=== PATIENT | female | born 1990 | race American Indian/Alaskan Native ===

== ENCOUNTER 2019-03-08 09:43 | Outpatient (CLI) | payer BC, MEDICAID ==
[2019-03-08 10:52] VITALS: BP 108/66
== END 2019-03-08 11:23 | disposition home or self-care (01) ==
LOC: TRG 09:43
PROVIDERS: ATTEND Obstetrics & Gynecology
DX: O47.02 False labor before 37 completed weeks of gestation, second trimester (principal); Z3A.21 21 weeks gestation of pregnancy
CPT/HCPCS: 59025

== ENCOUNTER 2019-04-23 11:37 | Outpatient (CLI) | payer BC, MEDICAID | END 2019-04-23 14:30 | disposition home or self-care (01) | LOC: LAB 11:37 → TRG 11:37 | PROVIDERS: ATTEND Obstetrics & Gynecology | DX: O26.893 Other specified pregnancy related conditions, third trimester (principal); O10.913 Unspecified pre-existing hypertension complicating pregnancy, third trimester; Z3A.28 28 weeks gestation of pregnancy; Z67.11 Type A blood, Rh negative | CPT/HCPCS: 86850; 86900; 86901; 96372; J2790 ==

== ENCOUNTER 2019-07-02 11:26 | Inpatient (IN) | payer BC, MEDICAID, OTHER ==
[2019-07-02] MEDS ORDERED: LACTATED RINGERS 2,000 ML ONE (11:43)
[2019-07-02] MEDS ORDERED: METOCLOPRAMIDE 10 MG/2 ML INJ IV ONE ×2 (11:46→17:55)
[2019-07-02] MEDS ORDERED: FAMOTIDINE 20 MG/2 ML INJ IV ONE ×2 (11:46→17:56)
[2019-07-02] MEDS ORDERED: BICITRA ORAL LIQD 30ML PO ONE (11:46)
[2019-07-02] MEDS ORDERED: ceFAZolin/Water 2 GM/20 ML 2 GM/20 ML SYRINGE IV NR ×2 (12:00→18:00)
[2019-07-02] MEDS ORDERED: OXYTOCIN 20 UNIT/1000ML DRIP 20 UNITS/1,000 ML BAG IV SCH ×3 (12:00→20:00)
[2019-07-02 12:33] LABS: Basophils % (Auto) 0.4 % (0.0-1.8); Eosinophils % (Auto) 0.4 % (0.0-4.3); Hemoglobin 11.9 gm/dl (10.1-14.3); Lymphocytes # (Auto) 1.6 K/mm3 (1.2-5.4); Lymphocytes % (Auto) 19.8 % (13.4-35.0); Mean Corpuscular HGB Conc 33 % (30-34); Mean Corpuscular Volume 92 fl (79-97); Monocytes # (Auto) 0.5 K/mm3 (0.0-0.8); Monocytes % (Auto) 6.4 % (0.0-7.3); Platelet Count 295 K/mm3 (140-440); Red Blood Count 3.93 M/mm3 (3.65-5.03); Red Cell Distribution Width 14.2 % (13.2-15.2)
[2019-07-02] MEDS: LACTATED RINGERS 1,000 ML IV SCH ×3 (13:40→15:29)
--- NOTE | 2019-07-02 17:52 | History and Physical Report ---
History of Present Illness Date of examination: 07/02/19 Date of admission: 07/02/19 11:26 Chief complaint: Sent in by MFM at [facility] for oligohydramnios at 38+1wks gestation. Past History Past Medical History: hypertension Past Surgical History: cholecystectomy, section - Obstetrical History Expected Date of Delivery: 07/15/19 Actual Gestation: 38 Week(s) 1 Day(s) : 3 Para: 1 Medications and Allergies Allergies Allergy/AdvReac Type Severity Reaction Status Date / Time No Known Allergies Allergy Verified 04/23/19 14:11 Home Medications Medication Instructions Recorded Confirmed Last Taken Type Methyldopa [Aldomet] 500 mg PO BID MDD 1000mg 07/02/19 07/02/19 07/02/19 07:00 History Active Meds: Active Medications Cefazolin Sodium (Ancef/Sterile Water 2 Gm/20 Ml) 2 gm in 20 mls @ 80 mls/hr IV PREOP NR; Protocol Stop: 07/02/19 23:59 Oxytocin/Sodium Chloride (Pitocin/Ns 20 Unit/1000ml Drip) 20 units in 1,000 mls @ 0 mls/hr IV TITR MESSI Lactated Ringer's (Lactated Ringers) 1,000 mls @ 2,250 mls/hr IV PREOP MESSI Stop: 07/03/19 12:27 Last Admin: 07/02/19 15:29 Dose: 2,250 mls/hr Documented by: Review of Systems All systems: negative Eyes: pain, no blurred vision Cardiovascular: no chest pain Respiratory: no cough Gastrointestinal: no abdominal pain, no nausea, no vomiting, no hematemesis Neurological: headaches (mild.) - Vital Signs Vital signs: Vital Signs Temp Pulse Resp BP 97.5 F L 96 H 20 120/76 07/02/19 11:49 07/02/19 11:49 07/02/19 11:49 07/02/19 11:49 Temp Pulse Resp BP Pulse Ox 97.5 F L 96 H 20 120/76 07/02/19 11:49 07/02/19 11:50 07/02/19 11:49 07/02/19 11:50 - Physical Exam Breasts: Positive: deferred Lungs: Positive: Normal air movement Abdomen: Positive: normal appearance, distention. Negative: tenderness - Obstetrical FHR: auscultation normal Results Result Diagrams: 07/02/19 12:00 Abnormal lab results 07/02/19 Range/Units 12:00 Seg Neutrophils % 73.0 H (40.0-70.0) % All other labs normal. Assessment and Plan - Patient Problems (1) 38 to 41 weeks gestation of Current Visit: Yes Status: Acute (2) Oligohydramnios antepartum Current Visit: Yes Status: Acute (3) Chronic hypertension Current Visit: Yes Status: Acute Plan to address problem: Patient is awaiting a repeat as soon as all systems ready. Will be continued on Methyl Dopa post .
[2019-07-02] MEDS ORDERED: FAMOTIDINE 20 MG/2 ML INJ IV SCH (17:55)
[2019-07-02] MEDS ORDERED: BICITRA ORAL LIQD 30ML PO SCH (17:55)
[2019-07-02] MEDS ORDERED: BICITRA ORAL LIQD 30ML ONE (17:55)
[2019-07-02] MEDS ORDERED: METOCLOPRAMIDE 10 MG/2 ML INJ ONE (17:56)
[2019-07-02] MEDS ORDERED: LACTATED RINGERS 1,000 ML IV SCH (18:00)
[2019-07-02] MEDS ORDERED: SODIUM CHLORIDE 0.9% IRR 1,500 ML BOTTLE IR ONE (18:40)
[2019-07-02] MEDS ORDERED: WATER FOR IRRIG STERILE 1,500 ML BOTTLE IR ONE (18:40)
[2019-07-02] MEDS ORDERED: KETOROLAC 30 MG/1 ML INJ ONE (19:39)
[2019-07-02] MEDS ORDERED: ONDANSETRON 4 MG/2 ML INJ ONE (19:39)
[2019-07-02] MEDS ORDERED: LANOLIN/ZINC/DIMETHICONE (LANSINOH) 7 GM TP PRN (19:43)
[2019-07-02] MEDS ORDERED: KETOROLAC 30 MG/1 ML INJ IV PRN (19:43)
[2019-07-02] MEDS ORDERED: ONDANSETRON 4 MG/2 ML INJ IV PRN ×2 (19:43→20:12)
[2019-07-02] MEDS ORDERED: MORPHINE 4 MG/1 ML INJ IV PRN (19:43)
[2019-07-02] MEDS ORDERED: NALOXONE 0.4 MG/1 ML INJ IV PRN (19:43)
[2019-07-02] MEDS ORDERED: WITCH HAZEL/ GLYCERIN PAD TP PRN (19:43)
[2019-07-02] MEDS ORDERED: ACETAMINOPHEN 325 MG TAB PO PRN (19:43)
[2019-07-02] MEDS ORDERED: HYDROmorphone 1 MG/1 ML INJ ONE (19:52)
--- NOTE | 2019-07-02 19:54 | Operative Report ---
Operative Report Operative Report: Date of surgery: 07/02/2019 Preoperative diagnoses: Term , chronic hypertension, oligohydramnios Postoperative diagnoses: The same. Peritoneal adhesions Operation: Lower segment transverse delivery Surgeon:Dayanna Zamudio MD Maintenance Apprentice: TERRY Simms Anesthesia: Spinal block Estimated blood loss: 650 mL Complications: None Findings: There was a live baby boy in cephalic presentation weighing 8 lbs. 1 oz., Apgars 8/9. The ovaries and fallopian tubes as well as the uterus were all grossly normal. There was a dense band of adhesions plastered over the anterior aspect of the uterus and attached to the anterior parietal peritoneum. The urine was clear at the end of surgery. Procedure in detail: The patient was taken to the operating room and given a spinal block. Patient was placed in the straight supine position and a Bazan catheter was inserted. The patient was prepped in the abdomen. The drapes were placed. A timeout was done. With the go ahead from the tongue and groove machine setter, a Pfannenstiel incision was made. This incision was carried across the subcutaneous layer to the fascia which was also divided transversely. The recti abdominis muscle flaps were stripped from the fascia using a combination of blunt and sharp dissections. The muscles were in the midline to gain access to the anterior parietal peritoneum which was divided after excluding any underlying viscera. Dense band of adhesions encountered over the lower uterine segments was careful ly evaluated and divided. The access to the peritoneal cavity was then widened by manual stretching. The bladder blade was applied. The utero vesicle peritoneal flap was divided transversely allowing the bladder to be displaced caudally. The uterine incision was placed in the lower segment transversely. The uterine incision was carried to the decidual layer. The uterine incision was extended on both sides using the bandage scissors. The amniotic sac was ruptured with clear fluid. The head was lifted out of the false maternal pelvis and delivered through the incision using fundal pressure and traction with the vacuum cup. The airways were bulb suctioned beginning with the mouth. Continuing fundal pressure combined with traction on the mandibular processes of the jaw de livered the rest of the baby. The umbilical cord was double clamped and divided. The baby was carefully transferred to the pediatric team. The placenta was manually removed from the uterine cavity. The uterine cavity was explored and was empty of any placental remnants. The uterine incision was repaired in 2 layers with #1 Vicryl. The surgical line on the uterus was hemostatic. Blood and clots were cleared from the peritoneal cavity. The anterior parietal peritoneum was repaired with #1 Vicryl. The fascia was repaired with #1 Vicryl. The subcutaneous layer was made hemostatic using the Bovie before the skin was closed subcuticularly with 4-0 Vicryl. There were no complications. The estimated blood loss was 650 mL. All sponges and instrument counts were correct. Patient was safely transferred to the recovery room.
--- NOTE | 2019-07-02 20:11 | Anesthesia Consultation ---
Anesthesia Consult and Med Hx Date of service: 07/02/19 - Airway Anesthetic Teeth Evaluation: Good, Partials ROM Head & Neck: Adequate Mental/Hyoid Distance: Adequate Mallampati Class: Class II Intubation Access Assessment: Probably Good - Pulmonary Exam CTA: Yes - Pre-Operative Health Status ASA Pre-Surgery Classification: ASA2 Proposed Anesthetic Plan: Spinal - Pulmonary Hx Smoking: No Hx Asthma: No Hx Respiratory Symptoms: No SOB: No COPD: No Home Oxygen Therapy: No Hx Pneumonia: No Hx Sleep Apnea: No - Cardiovascular System Hx Hypertension: Yes Hx Coronary Artery Disease: No Hx Heart Attack/AMI: No Hx Angina: No Hx Percutaneous Transluminal Coronary Angioplasty (PTCA): No Hx Cardia Arrhythmia: No Hx Pacemaker: No Hx Internal Defibrillator: No Hx Valvular Heart Disease: No - Central Nervous System Hx Neuromuscular Disorder: No Hx Seizures: No CVA: No Hx Back Pain: No Hx Psychiatric Problems: No - Gastrointestinal Hx Ulcer: No Hx Gastroesophageal Reflux Disease: No - Endocrine Hx Renal Disease: No Hx End Stage Renal Disease: No Hx Cirrhosis: No Hx Liver Disease: No Hx Insulin Dependent Diabetes: No Hx Non-Insulin Dependent Diabetes: No Hx Thyroid Disease: No Hx Hypothyroidism: No Hx Hyperthyroidism: No - Hematic Hx Anemia: No Hx Sickle Cell Disease: No - Other Systems Hx Alcohol Use: No Hx Substance Use: No Hx Cancer: No Hx Obesity: Yes (BMI 40)
[2019-07-02] MEDS ORDERED: diphenhydrAMINE 50 MG/ML VIAL IV PRN (20:12)
[2019-07-02] MEDS ORDERED: HYDROmorphone 1 MG/1 ML INJ IV PRN (20:12)
--- NOTE | 2019-07-02 20:12 | Post Anesthesia Evaluation ---
- Post Anesthesia Evaluation Patient Participated: Yes Airway Patent: Yes Stable Respiratory Function: Yes Nausea/Vomiting: No Temp > 96.8F: Yes Pain Manageable: Yes Adequeate Hydration: Yes Anesthesia Complications: No Block Receding Appropriately: Yes Patient on Ventilator: No
--- NOTE | 2019-07-02 20:12 | Anesthesia Day of Surgery ---
Anesthesia Day of Surgery - Day of Surgery Patient Examined: Yes Patient H&P Reviewed: Yes Patient is NPO: Yes Beta Blockers: No Cardiac Clearance: No Pulmonary Clearance: No Toni's Test: N/A
[2019-07-02] MEDS: HYDROmorphone 1 MG/1 ML INJ IV PRN ×2 (20:46→21:10)
[2019-07-03] MEDS ORDERED: LACTATED RINGERS 1,000 ML ONE (02:25)
[2019-07-03] MEDS: ceFAZolin/NS 1 GM/50 ML 1 GM/50 ML BAG IV SCH ×2 (07:40→16:55)
[2019-07-03] MEDS: HYDROcodone/ACETAMINOPHEN 5-325 MG TAB PO PRN ×2 (08:46→14:53)
[2019-07-03 09:35] LABS: Hematocrit 34.7 % (30.3-42.9); Hemoglobin 11.7 gm/dl (10.1-14.3)
[2019-07-03] MEDS: FERROUS SULFATE 325 MG TAB PO SCH (11:09)
[2019-07-03] MEDS: PRENATAL VIT27-FE FUMARATE-FOLIC ACID VIT TAB PO SCH (11:10)
--- NOTE | 2019-07-03 12:54 | Progress Note ---
Assessment and Plan A: SP c/section P: doing well continue routine postop care. Dayanna Tierney MD Subjective - Subjective Date of service: 07/03/19 Interval history: doing well no complaints Objective - Vital Signs Vital Signs: Vital Signs - 12hr 07/03/19 07/03/19 04:03 08:34 Temperature 98.5 F 98.3 F Pulse Rate 80 79 Respiratory 18 18 Rate Blood Pressure 112/73 124/84 O2 Sat by Pulse 97 99 Oximetry - Exam Breasts: deferred Cardiovascular: Regular rate Lungs: Clear to auscultation Abdomen: Present: normal appearance, soft, normal bowel sounds Uterus: Present: firm, fundal height at umbilicus Deep Tendon Reflex Grade: Normal +2 - Labs Labs: Abnormal Labs 07/02/19 12:00 Seg Neutrophils % 73.0 H Laboratory Results - last 24 hr 07/02/19 07/03/19 07/03/19 12:00 08:34 08:49 Hgb 11.7 Hct 34.7 Blood Type A NEGATIVE A NEGATIVE Antibody Screen Negative Negative Screen Negative
[2019-07-03] MEDS: IBUPROFEN 800 MG TAB PO PRN (20:25)
[2019-07-04] MEDS: HYDROcodone/ACETAMINOPHEN 5-325 MG TAB PO PRN (04:58)
[2019-07-04] MEDS: PRENATAL VIT27-FE FUMARATE-FOLIC ACID VIT TAB PO SCH (10:26)
[2019-07-04] MEDS: FERROUS SULFATE 325 MG TAB PO SCH (10:26)
[2019-07-04] MEDS: IBUPROFEN 800 MG TAB PO PRN ×2 (10:29→19:20)
--- NOTE | 2019-07-04 11:05 | Progress Note ---
Assessment and Plan A: /postop day 2 S/P repeat low transverse section. Chronic hypertension. P: Continue current management. Encouraged ambulation. Subjective - Subjective Date of service: 07/04/19 Principal diagnosis: /postop day 2 S/P repeat low transverse section Interval history: /postop day 2 S/P repeat low transverse section. Chronic hypertension. Doing well. Patient reports small amount of lochia. She is voiding without difficulty, ambulating well, tolerating a regular diet, and passing gas. Patient denies headache, cough, shortness of breath, chest pain, leg pain, ab dominal pain, nausea or vomiting, or heavy vaginal bleeding. Patient reports: appetite normal, voiding normally, pain well controlled, flatus, ambulating normally, no dizzy ambulation, no nauseated : doing well, in NICU Objective - Vital Signs Latest vital signs: Vital Signs Temp Pulse Resp BP Pulse Ox 07/04/19 07:30 97.5 F L 90 18 130/86 95 07/03/19 23:22 98.2 F 85 18 119/79 96 07/03/19 16:29 122.0 F H 94 H 18 126/76 98 Intake and Output 07/03/19 07/04/19 07/04/19 23:59 07:59 15:59 Intake Total 1200 500 Output Total 900 Balance 300 500 Intake: Oral 360 Intake, Free Water 840 500 Output: Urine 900 Void 900 Other: Total, Intake Amount 360 Total, Output Amount 900 # Voids Void 2 1 - Exam Cardiovascular: Present: Regular rate, Normal S1, Normal S2, No murmurs Lungs: Present: Clear to auscultation Abdomen: Present: normal appearance, soft, normal bowel sounds. Absent: distention, tenderness, guarding, rigidity Uterus: Present: normal, firm, fundal height below umbilicus. Absent: bogginess, tenderness Extremities: Present: normal, edema (mild pedal edema bilaterally). Absent: tenderness Incision: Present: normal, dry, intact
[2019-07-05] MEDS: IBUPROFEN 800 MG TAB PO PRN (05:20)
[2019-07-05] MEDS: HYDROcodone/ACETAMINOPHEN 5-325 MG TAB PO PRN ×2 (05:20→20:41)
--- NOTE | 2019-07-05 10:01 | Discharge Summary ---
Providers - Providers Date of Admission: 07/02/19 11:26 Date of discharge: 07/05/19 (1200) Attending physician: ANJELICA DOS SANTOS MD Primary care physician: ANJELICA DOS SANTOS MD Hospitalization Reason for admission: induction of labor, IUP at term Delivery: Procedure: repeat low transverse Episiotomy: none Laceration: none Incision: dry, intact (steri-strips intact, no signs of infection noted) complications: none Discharge diagnosis: other (S/P repeat C/S) baby: male (In NICU) Hospital course: See admission H & P; OB operative note and PP progress notes Condition at discharge: Stable Disposition: DC-01 TO HOME OR SELFCARE - Discharge Diagnoses (1) S/P repeat low transverse Status: Acute (2) Chronic hypertension Status: Acute Plan - Discharge Medications Prescriptions: HYDROcodone/APAP 5-325 [[place] 5/325] 1 - 2 each PO Q4HR PRN #30 tablet PRN Reason: Pain - Provider Discharge Summary Activity: routine, no sex for 6 weeks, no heavy lifting 4 weeks, no strenuous exercise Diet: routine Instructions: routine Additional instructions: [] Smoking cessation referral if applicable(refer to patient education folder for contact #) [] Refer to [facility]'s [facility] Booklet Call your doctor immediately for: * Fever > 100.5 * Heavy vaginal bleeding ( >1 pad per hour) * Severe persistent headache * Shortness of breath * Reddened, hot, painful area to leg or breast * Drainage or odor from incision. * Keep incision clean and dry at all times and follow doctor's instructions regarding bathing/showering - Follow up plan Follow up: ANJELICA DOS SANTOS MD [Primary Care Provider] - 7 Days
[2019-07-05] MEDS: FERROUS SULFATE 325 MG TAB PO SCH (10:41)
[2019-07-05] MEDS: PRENATAL VIT27-FE FUMARATE-FOLIC ACID VIT TAB PO SCH (10:41)
[2019-07-06] MEDS: IBUPROFEN 800 MG TAB PO PRN (00:08)
[2019-07-06] MEDS: HYDROcodone/ACETAMINOPHEN 5-325 MG TAB PO PRN (05:34)
[2019-07-06 08:16] LABS: Basophils % (Auto) 0.4 % (0.0-1.8); Eosinophils # (Auto) 0.2 K/mm3 (0.0-0.4); Eosinophils % (Auto) 2.9 % (0.0-4.3); Hematocrit 30.3 % (30.3-42.9); Hemoglobin 10.4 gm/dl (10.1-14.3); Lymphocytes # (Auto) 1.3 K/mm3 (1.2-5.4); Lymphocytes % (Auto) 23.5 % (13.4-35.0); Mean Corpuscular HGB Conc 34 % (30-34); Mean Corpuscular Volume 92 fl (79-97); Monocytes # (Auto) 0.7 K/mm3 (0.0-0.8); Monocytes % (Auto) 12.4 % (0.0-7.3); Platelet Count 252 K/mm3 (140-440); Red Cell Distribution Width 14.1 % (13.2-15.2)
[2019-07-06] MEDS: FERROUS SULFATE 325 MG TAB PO SCH (11:11)
[2019-07-06] MEDS: PRENATAL VIT27-FE FUMARATE-FOLIC ACID VIT TAB PO SCH (11:11)
[2019-07-06 11:14] VITALS: BP 133/90
== END 2019-07-06 12:07 | disposition home or self-care (01) | DRG 765 ==
LOC: UNDOADMIN 11:26 → APU 11:26 → OB 22:35
PROVIDERS: ADMIT Obstetrics & Gynecology; ATTEND Obstetrics & Gynecology
PROC: 10D00Z1 Extraction of Products of Conception, Low, Open Approach (ICD-10-PCS; principal; 2019-07-02)
PROC: 3E0234Z Introduction of Serum, Toxoid and Vaccine into Muscle, Percutaneous Approach (ICD-10-PCS; 2019-07-05)
DX: O34.211 Maternal care for low transverse scar from previous cesarean delivery (principal); O41.03X0 Oligohydramnios, third trimester, not applicable or unspecified; O10.02 Pre-existing essential hypertension complicating childbirth; O26.893 Other specified pregnancy related conditions, third trimester; O99.214 Obesity complicating childbirth; E66.01 Morbid (severe) obesity due to excess calories; Z3A.38 38 weeks gestation of pregnancy; Z37.0 Single live birth; Z71.3 Dietary counseling and surveillance; Z90.49 Acquired absence of other specified parts of digestive tract; Z67.11 Type A blood, Rh negative
CPT/HCPCS: 36415; 85014; 85018; 85025; 85461; 86592; 86850; 86900; 86901; G0378; J0690; J1170; J1885; J2405; J2590; J2765; J2790; J7120

== ENCOUNTER 2021-04-11 12:04 | Outpatient (CLI) | payer MEDICAID ==
[2021-04-12 03:29] VITALS: BP 130/81
== END 2021-04-11 16:10 | disposition home or self-care (01) ==
LOC: LAB 12:04 → APU 16:01 → LAB 16:10
PROVIDERS: ATTEND Obstetrics & Gynecology
DX: O26.893 Other specified pregnancy related conditions, third trimester (principal); Z3A.29 29 weeks gestation of pregnancy; Z67.11 Type A blood, Rh negative
CPT/HCPCS: 86850; 86900; 86901; 96372; J2790

== ENCOUNTER 2021-06-28 17:27 | Inpatient (IN) | payer MEDICAID ==
[2021-06-28] MEDS ORDERED: MAGNESIUM SULFATE 4 GM/100 ML BAG IV ONE (19:13)
[2021-06-28] MEDS ORDERED: hydrALAZINE 20 MG/1 ML INJ IV PRN (19:13)
--- NOTE | 2021-06-28 19:13 | History and Physical Report ---
History of Present Illness Date of examination: 06/28/21 History of present illness: delivered term preg via c/section here at [facility] by me on 06/22/21 uncomplicated and returns to triage with c/o severe frontal headache that radiates to her neck. Pt denies pelvic pain and no longer takes her percocet med. Pt states she has scant vag bleed. pt is breast feeding. Pt also states that she has been taking her labetalol 100mg bid throughout the preg and last taken this morning. Past History Past Medical History: hypertension, other (Obesity, depression and Rh neg and received rhogam post delivery) Past Surgical History: section (x3) Social history: no significant social history - Obstetrical History : 4 Spontaneous Abortions: 1 Number of Living Children: 3 Medications and Allergies Allergies Allergy/AdvReac Type Severity Reaction Status Date / Time No Known Allergies Allergy Verified 04/23/19 14:11 Home Medications Medication Instructions Recorded Confirmed Last Taken Type HYDROcodone/APAP 5-325 [[place] 1 - 2 each PO Q4HR PRN #30 tablet 07/02/19 06/24/21 Unknown Rx 5/325] Methyldopa (Nf) [Aldomet (Nf)] 500 mg PO BID MDD 1000mg 07/02/19 06/24/21 07/02/19 07:00 History Ibuprofen [Motrin] 800 mg PO Q8HR PRN 21 Days #40 06/22/21 Unknown Rx tablet oxyCODONE /ACETAMINOPHEN [Percocet 1 tab PO Q4HR PRN 21 Days #30 tab 06/22/21 Unknown Rx 5/325] Review of Systems All systems: negative (severe headache) - Vital Signs Vital signs: Vital Signs Pulse BP 66 178/102 06/28/21 18:04 06/28/21 18:04 Temp Pulse Resp BP Pulse Ox 70 178/86 92 06/28/21 19:09 06/28/21 19:06 06/28/21 19:09 - Physical Exam Breasts: Positive: deferred Cardiovascular: Regular rate Abdomen: Positive: normal appearance, soft, other (c/section scar with steristrips C/D/I) Uterus: Positive: enlarged (3cm below umbilicus and non-tender) Results Result Diagrams: 06/28/21 20:01 06/28/21 20:01 All other labs normal. Assessment and Plan POD#6 C/S now with chronic HTN and superimposed preeclampsia 1. [facility] sulfate seizure prophylaxis x24hrs 2. Increase current oral labetalol to 200mg bid 3. PIH labs seen and same wnl 4. routine post op care 5. Tylenol prn headache and if same persists, may consider further imaging All questions encouraged and answered and pt agreeable with plan of care
[2021-06-28] MEDS ORDERED: LACTATED RINGERS 1,000 ML IV SCH (19:15)
[2021-06-28 20:22] LABS: Hemoglobin 11.4 gm/dl (10.1-14.3)
[2021-06-28 20:28] LABS: Hematocrit 33.8 % (30.3-42.9); Mean Corpuscular HGB Conc 34 % (30-34); Mean Corpuscular Volume 92 fl (79-97); Platelet Count 302 K/mm3 (140-440); Red Blood Count 3.69 M/mm3 (3.65-5.03); Red Cell Distribution Width 14.1 % (13.2-15.2)
[2021-06-28 20:53] LABS: Alanine Aminotransferase 35 units/L (7-56); Albumin 3.5 g/dL (3.9-5); Blood Urea Nitrogen 6 mg/dL (7-17); Calcium 9.5 mg/dL (8.4-10.2); Hemolysis Index 3
[2021-06-28 20:54] LABS: BUN/Creatinine Ratio 20; Bilirubin,Direct < 0.2 mg/dL (0-0.2)
[2021-06-28] MEDS: MAGNESIUM SULFATE 40GM/1000ML 40 GM/1,000 ML BAG IV SCH (21:00)
[2021-06-29] MEDS: ACETAMINOPHEN 500 MG TAB PO PRN ×2 (00:23→07:19)
[2021-06-29] MEDS: HYDROcodone/ACETAMINOPHEN 5-325 MG TAB PO PRN ×2 (12:59→18:53)
[2021-06-29] MEDS: MAGNESIUM SULFATE 40GM/1000ML 40 GM/1,000 ML BAG IV SCH (16:24)
--- NOTE | 2021-06-29 16:58 | Progress Note ---
Assessment and Plan A: preeclampsia, 1 week S/P section. P: Continue magnesium sulfate for seizure prevention. Labetalol 300 mg po BID. Medicate for headache. Subjective - Subjective Date of service: 06/29/21 Principal diagnosis: preeclampsia Interval history: Reports mild headache. On magnesium sulfate and Labetalol 300 mg po BID. Patient reports: appetite normal, flatus, nauseated Objective - Vital Signs Latest vital signs: Vital Signs Temp Pulse Resp BP Pulse Ox 06/29/21 16:50 74 97 06/29/21 16:45 72 96 06/29/21 16:40 78 97 06/29/21 16:35 76 98 06/29/21 16:30 72 98 06/29/21 16:25 80 97 06/29/21 16:20 88 96 06/29/21 16:15 81 98 06/29/21 16:11 81 159/89 06/29/21 16:10 79 97 06/29/21 14:39 64 155/85 06/29/21 14:09 71 151/86 06/29/21 14:00 99 06/29/21 13:39 72 147/87 06/29/21 13:09 77 150/88 06/29/21 12:59 18 06/29/21 12:55 76 160/89 06/29/21 12:54 78 160/89 06/29/21 12:39 78 148/86 06/29/21 12:09 83 146/89 06/29/21 12:00 98.8 F 18 99 06/29/21 11:49 79 158/83 06/29/21 11:39 87 151/101 06/29/21 11:09 82 150/87 06/29/21 10:39 80 142/84 06/29/21 10:09 82 158/85 06/29/21 10:00 98 06/29/21 09:39 73 146/81 06/29/21 09:36 81 144/81 06/29/21 09:35 75 144/81 06/29/21 09:10 75 139/78 06/29/21 09:09 75 151/112 06/29/21 08:39 71 154/85 06/29/21 08:09 77 145/86 06/29/21 08:00 98.6 F 18 99 06/29/21 07:39 81 143/88 06/29/21 07:20 78 149/82 06/29/21 07:19 18 06/29/21 07:09 75 171/91 06/29/21 06:39 75 170/86 06/29/21 06:09 80 153/82 06/29/21 03:08 62 94 06/29/21 03:07 65 95 06/29/21 03:06 77 153/83 06/29/21 03:02 71 94 06/29/21 02:57 70 94 06/29/21 02:52 83 96 06/29/21 02:51 78 159/97 06/29/21 02:47 65 95 06/29/21 02:42 76 94 06/29/21 02:37 65 94 06/29/21 02:36 80 152/89 06/29/21 02:32 68 94 06/29/21 02:27 70 94 06/29/21 02:23 82 94 06/29/21 02:22 75 95 06/29/21 02:21 80 146/82 06/29/21 02:17 71 93 06/29/21 02:12 68 93 06/29/21 02:10 80 94 06/29/21 02:07 85 95 06/29/21 02:06 71 136/77 06/29/21 02:02 67 92 06/29/21 01:59 73 93 06/29/21 01:57 64 93 06/29/21 01:52 68 92 06/29/21 01:51 79 146/75 06/29/21 01:47 72 92 06/29/21 01:43 75 93 06/29/21 01:42 74 92 06/29/21 01:37 65 92 06/29/21 01:36 70 127/70 94 21 01:32 69 92 21 01:27 69 92 21 01:22 65 92 21 01:21 66 128/72 21 01:17 67 91 21 01:12 64 95 06/29/21 01:07 76 94 06/29/21 01:06 78 127/70 06/29/21 01:03 74 94 06/29/21 01:02 81 97 06/29/21 00:57 69 96 06/29/21 00:52 70 95 06/29/21 00:51 73 133/72 06/29/21 00:47 69 95 06/29/21 00:42 71 96 06/29/21 00:37 67 97 06/29/21 00:36 76 132/70 06/29/21 00:32 75 96 06/29/21 00:27 76 97 06/29/21 00:25 97 H 94 06/29/21 00:22 72 96 06/29/21 00:21 79 164/93 06/29/21 00:17 68 161/94 97 06/29/21 00:12 77 97 06/29/21 00:07 70 96 06/29/21 00:06 72 161/94 06/29/21 00:02 71 96 06/28/21 23:57 70 96 06/28/21 23:52 76 96 06/28/21 23:51 73 153/88 06/28/21 23:47 83 96 06/28/21 23:42 66 97 06/28/21 23:37 77 95 06/28/21 23:36 79 162/96 06/28/21 23:32 71 95 06/28/21 23:31 70 94 06/28/21 23:27 73 96 06/28/21 23:22 71 96 06/28/21 23:21 76 157/89 06/28/21 23:17 73 97 06/28/21 23:12 72 96 06/28/21 23:07 77 95 06/28/21 23:06 78 150/81 06/28/21 23:05 67 93 06/28/21 23:02 75 93 06/28/21 22:58 70 94 06/28/21 22:57 66 95 06/28/21 22:52 64 93 06/28/21 22:51 65 152/88 94 06/28/21 22:47 65 92 06/28/21 22:43 68 94 06/28/21 22:42 70 93 06/28/21 22:37 77 92 06/28/21 22:36 75 142/84 06/28/21 22:35 79 94 06/28/21 22:32 67 92 06/28/21 22:27 76 94 06/28/21 22:23 70 94 06/28/21 22:22 71 95 06/28/21 22:21 71 152/84 06/28/21 22:18 74 94 06/28/21 22:17 74 95 06/28/21 22:12 68 95 06/28/21 22:08 71 94 06/28/21 22:07 68 95 06/28/21 22:06 69 136/65 06/28/21 22:02 79 95 06/28/21 21:57 80 96 06/28/21 21:56 88 94 06/28/21 21:52 66 93 06/28/21 21:51 74 153/85 06/28/21 21:47 76 92 06/28/21 21:42 68 95 06/28/21 21:37 70 96 06/28/21 21:36 75 148/86 06/28/21 21:33 66 94 06/28/21 21:32 70 96 06/28/21 21:27 69 97 06/28/21 21:22 66 97 06/28/21 21:21 66 152/86 06/28/21 21:17 66 96 06/28/21 21:12 62 97 06/28/21 21:07 77 97 06/28/21 21:06 65 154/88 06/28/21 21:02 67 97 06/28/21 20:57 67 97 06/28/21 20:52 64 97 06/28/21 20:51 71 155/86 06/28/21 20:47 68 95 06/28/21 20:42 71 95 06/28/21 20:39 73 94 06/28/21 20:37 67 95 06/28/21 20:36 77 143/80 06/28/21 20:34 78 93 06/28/21 20:32 72 95 06/28/21 20:28 65 94 06/28/21 20:27 64 95 06/28/21 20:22 60 95 06/28/21 20:21 62 177/91 06/28/21 20:17 56 L 95 06/28/21 20:15 58 L 174/86 06/28/21 20:12 58 L 96 06/28/21 20:07 58 L 96 06/28/21 20:06 58 L 174/86 06/28/21 20:02 58 L 97 06/28/21 19:57 61 97 06/28/21 19:52 59 L 98 06/28/21 19:51 63 180/96 06/28/21 19:47 56 L 99 06/28/21 19:42 70 90 06/28/21 19:41 57 L 89 06/28/21 19:37 59 L 97 06/28/21 19:36 59 L 182/103 06/28/21 19:32 57 L 98 06/28/21 19:27 56 L 97 06/28/21 19:22 57 L 98 06/28/21 19:21 53 L 180/93 06/28/21 19:17 60 98 06/28/21 19:12 60 98 06/28/21 19:09 70 92 06/28/21 19:07 65 99 06/28/21 19:06 61 178/86 06/28/21 19:03 78 93 06/28/21 19:02 72 99 06/28/21 18:55 62 97 06/28/21 18:51 55 L 192/98 06/28/21 18:50 62 97 06/28/21 18:45 59 L 98 06/28/21 18:40 55 L 98 06/28/21 18:36 57 L 193/100 06/28/21 18:35 56 L 98 06/28/21 18:30 56 L 97 06/28/21 18:25 55 L 98 06/28/21 18:21 58 L 170/96 06/28/21 18:20 58 L 97 06/28/21 18:15 62 97 06/28/21 18:10 59 L 97 06/28/21 18:06 56 L 168/96 06/28/21 18:05 61 98 06/28/21 18:04 66 178/102 Intake and Output 06/29/21 06/29/21 06/29/21 07:59 15:59 23:59 Intake Total 250 Output Total 1999 3399 Balance -1750 -340 Intake: IV 250 Lactated Ringers 1,000 ml 150 @ 125 mls/hr IV DIRECT MESSI Rx#:[id number] MAGNESIUM SULFATE 40GM/ 100 1000ML 40 gm In 1,000 ml @ 2 GM/HR 50 mls/hr IV DIRECT MESSI Rx#:[id number] Output: Urine 2000 3400 Indwelling Catheter 2000 3400 Other: Total, Output Amount 1999 200 - Exam Cardiovascular: Present: Regular rate Lungs: Present: Clear to auscultation Abdomen: Present: normal appearance, soft. Absent: distention, tenderness, guarding, rigidity Uterus: Present: normal, firm, fundal height below umbilicus. Absent: bogginess, tenderness Extremities: Present: edema (mild bilateral edema). Absent: tenderness Incision: Present: normal, dry, intact - Labs Labs: Abnormal lab results 06/28/21 Range/Units 20:01 Carbon Dioxide 21 L (22-30) mmol/L BUN 6 L (7-17) mg/dL Creatinine 0.3 L (0.6-1.2) mg/dL Magnesium 1.60 L (1.7-2.3) mg/dL Alkaline Phosphatase 144 H (35-129) units/L Albumin 3.5 L (3.9-5) g/dL
[2021-06-30] MEDS: ACETAMINOPHEN 500 MG TAB PO PRN (00:05)
--- NOTE | 2021-06-30 07:56 | Discharge Summary ---
Providers - Providers Date of Admission: 06/28/21 19:14 Date of discharge: 06/30/21 Attending physician: KAROL MELÉNDEZ Primary care physician: KAROL MELÉNDEZ Hospitalization Reason for admission: other (PP preeclampsia) Condition at discharge: Stable Disposition: 01 HOME / SELF CARE / HOMELESS Plan - Discharge Medications Prescriptions: Labetalol HCl [Labetalol 300mg TAB] 300 mg PO BID #60 tablet - Provider Discharge Summary Activity: no sex for 6 weeks Diet: routine Additional instructions: [] Smoking cessation referral if applicable(refer to patient education folder for contact #) [] Refer to [facility] Booklet Call your doctor immediately for: * Fever > 100.5 * Heavy vaginal bleeding ( >1 pad per hour) * Severe persistent headache * Shortness of breath * Reddened, hot, painful area to leg or breast * Drainage or odor from incision. * Keep incision clean and dry at all times and follow doctor's instructions regarding bathing/showering - Follow up plan Follow up: KAROL MELÉNDEZ MD [Primary Care Provider] - 7 Days
--- NOTE | 2021-06-30 07:58 | Progress Note ---
Subjective - Subjective Date of service: 06/30/21 Principal diagnosis: preeclampsia Interval history: PP preeclampsia Stable on Labetalol 300mg BID PE benign D/C to home, follow up in one week Dayanna Tierney MD Patient reports: appetite normal, voiding normally, pain well controlled, ambulating normally Objective - Vital Signs Latest vital signs: Vital Signs Temp Pulse Resp BP Pulse Ox 06/30/21 05:52 98.3 F 68 18 117/67 96 06/30/21 01:05 18 06/30/21 00:05 20 06/29/21 23:39 98.4 F 73 20 151/90 98 06/29/21 23:00 94 H 94 06/29/21 22:55 71 95 06/29/21 22:53 71 94 06/29/21 22:50 72 95 06/29/21 22:45 73 96 06/29/21 22:40 74 95 06/29/21 22:35 74 96 06/29/21 22:30 73 96 06/29/21 22:25 74 96 06/29/21 22:20 90 96 06/29/21 22:15 89 96 06/29/21 22:11 83 135/95 06/29/21 22:10 87 97 06/29/21 22:05 102 H 96 06/29/21 22:00 81 95 06/29/21 21:59 86 94 06/29/21 21:55 85 96 06/29/21 21:50 83 96 06/29/21 21:45 75 94 06/29/21 21:44 82 94 06/29/21 21:40 73 96 06/29/21 21:35 87 95 06/29/21 21:31 69 94 06/29/21 21:30 71 95 06/29/21 21:25 70 95 06/29/21 21:23 68 94 06/29/21 21:20 70 95 06/29/21 21:15 68 96 06/29/21 21:11 68 147/89 06/29/21 21:10 75 95 06/29/21 21:05 76 96 06/29/21 21:00 74 96 06/29/21 20:55 76 97 06/29/21 20:50 83 96 06/29/21 20:45 76 97 06/29/21 20:40 71 96 06/29/21 20:35 84 97 06/29/21 20:30 77 96 06/29/21 20:25 73 95 06/29/21 20:20 73 95 06/29/21 20:15 77 96 06/29/21 20:12 80 147/85 06/29/21 20:11 81 170/97 06/29/21 20:10 80 97 06/29/21 20:05 79 96 06/29/21 20:00 72 96 06/29/21 19:55 86 96 06/29/21 19:53 18 06/29/21 19:50 86 96 06/29/21 19:45 79 96 06/29/21 19:40 83 98 06/29/21 19:35 87 98 06/29/21 19:30 82 97 06/29/21 19:25 83 98 06/29/21 19:20 76 97 06/29/21 19:15 80 97 06/29/21 19:10 85 97 06/29/21 19:05 86 97 06/29/21 19:00 77 96 06/29/21 18:55 86 97 06/29/21 18:53 18 06/29/21 18:50 90 96 06/29/21 18:45 86 96 06/29/21 18:40 78 96 06/29/21 18:35 79 96 06/29/21 18:30 77 97 06/29/21 18:25 78 96 06/29/21 18:20 76 96 06/29/21 18:15 74 96 06/29/21 18:11 78 149/86 06/29/21 18:10 87 97 06/29/21 18:05 79 97 06/29/21 18:00 78 96 06/29/21 17:55 85 97 06/29/21 17:50 75 96 06/29/21 17:45 73 97 06/29/21 17:40 73 96 06/29/21 17:35 71 96 06/29/21 17:30 71 96 06/29/21 17:25 76 97 06/29/21 17:20 82 97 06/29/21 17:15 85 96 06/29/21 17:12 80 154/92 06/29/21 17:11 86 163/93 06/29/21 17:10 91 H 96 06/29/21 17:05 76 96 06/29/21 17:00 77 96 06/29/21 16:55 69 97 06/29/21 16:50 74 97 06/29/21 16:45 72 96 06/29/21 16:40 78 97 06/29/21 16:35 76 98 06/29/21 16:30 72 98 06/29/21 16:25 80 97 06/29/21 16:20 88 96 06/29/21 16:15 81 98 06/29/21 16:11 81 159/89 06/29/21 16:10 79 97 06/29/21 14:39 64 155/85 06/29/21 14:09 71 151/86 06/29/21 14:00 99 06/29/21 13:39 72 147/87 06/29/21 13:09 77 150/88 06/29/21 12:59 18 06/29/21 12:55 76 160/89 06/29/21 12:54 78 160/89 06/29/21 12:39 78 148/86 06/29/21 12:09 83 146/89 06/29/21 12:00 98.8 F 18 99 06/29/21 11:49 79 158/83 06/29/21 11:39 87 151/101 06/29/21 11:09 82 150/87 06/29/21 10:39 80 142/84 06/29/21 10:09 82 158/85 06/29/21 10:00 98 06/29/21 09:39 73 146/81 06/29/21 09:36 81 144/81 06/29/21 09:35 75 144/81 06/29/21 09:10 75 139/78 06/29/21 09:09 75 151/112 06/29/21 08:39 71 154/85 06/29/21 08:09 77 145/86 06/29/21 08:00 98.6 F 18 99 Intake and Output 06/29/21 06/29/21 06/30/21 15:59 23:59 07:59 Intake Total 350 360 Output Total 3400 900 300 Balance -3400 -550 60 Intake: Oral 350 Intake, Free Water 360 Output: Urine 3400 900 300 Indwelling Catheter 3400 900 Void 300 Other: Total, Intake Amount 350 Total, Output Amount 200 900 300 Voiding Method Toilet - Labs Labs: Abnormal lab results 06/29/21 Range/Units 17:19 Magnesium 5.50 H (1.7-2.3) mg/dL
[2021-06-30 08:50] VITALS: BP 151/87
[2021-06-30] MEDS: HYDROcodone/ACETAMINOPHEN 5-325 MG TAB PO PRN (08:51)
== END 2021-06-30 12:35 | disposition home or self-care (01) | DRG 776 ==
LOC: TRG 17:27 → APU 17:31 → TRG 19:13 → LD 19:14 → OB 06-29 23:24
PROVIDERS: ADMIT Obstetrics & Gynecology; ATTEND Obstetrics & Gynecology
DX: O14.05 Mild to moderate pre-eclampsia, complicating the puerperium (principal)
CPT/HCPCS: 36415; 80048; 80076; 82565; 83735; 84550; 85027; G0378; J3475; J7120